=== PATIENT | male | born 1955 | race Caucasian/White ===

== ENCOUNTER 2018-09-28 19:24 | Emergency (ER) | payer BC, OTHER ==
[2018-09-28] MEDS ORDERED: DOXYcycline CAP(*) 100 MG PO ONE (21:07)
--- NOTE | 2018-09-28 21:12 | ED ---
Skin Complaint - HPI Summary HPI Summary: 62-year-old male presents with complaints of erythematous bull's-eye rash to his right lower leg. States he noticed what looked like a bug bite to that same area approximately one week ago but states he did not see any tick. Denies fever, flulike illness, myalgias, joint pain or swelling. - History of Current Complaint Chief Complaint: EDRashSkinAbscess Time Seen by Provider: 09/28/18 21:00 Stated Complaint: TICK ON RT LEG PER PT Hx Obtained From: Patient Pain Intensity: 0 - Allergy/Home Medications Allergies/Adverse Reactions: Allergies Allergy/AdvReac Type Severity Reaction Status Date / Time No Known Allergies Allergy Verified 09/28/18 19:30 PMH/Surg Hx/FS Hx/Imm Hx Previously Healthy: Yes - Denies significant PMH - Surgical History Surgical History: None Infectious Disease History: No Infectious Disease History: Denies: Traveled Outside the in Last 30 Days - Family History Known Family History: Positive: Non-Contributory - Social History Occupation: Employed Full-time Lives: Alone Alcohol Use: None Substance Use Type: Reports: None Smoking Status (MU): Never Smoked Tobacco Review of Systems Negative: Fever, Chills Cardiovascular: Negative Respiratory: Negative Gastrointestinal: Negative Genitourinary: Negative Negative: Arthralgia, Myalgia Positive: Rash - See HPI Neurological: Negative All Other Systems Reviewed And Are Negative: No Physical Exam - Summary Physical Exam Summary: GENERAL APPEARANCE: Well developed, well nourished, alert and cooperative, and appears to be in no acute distress. CARDIAC: Normal S1 and S2. No S3, S4 or murmurs. Rhythm is regular. There is no peripheral edema, cyanosis or pallor. Extremities are warm and well perfused. Capillary refill is less than 2 seconds. Peripheral pulses intact. LUNGS: Clear to auscultation without rales, rhonchi, wheezing or diminished breath sounds. ABDOMEN: Positive bowel sounds. Soft, nondistended, nontender. No guarding or rebound. No masses or hepatosplenomegally. MUSKULOSKELETAL: ROM intact to all extremities. No joint erythema or tenderness. Normal muscular development. Normal gait. EXTREMITIES: 8 cm oval-shaped erythematous rash with central pallor. SKIN: Skin normal color, texture and turgor. Triage Information Reviewed: Yes Vital Signs On Initial Exam: Initial Vitals Temp Pulse Resp BP Pulse Ox 97.4 F 62 16 139/87 98 09/28/18 19:27 09/28/18 19:27 09/28/18 19:27 09/28/18 19:27 09/28/18 19:27 Vital Signs Reviewed: Yes Diagnostics - Vital Signs Vital Signs Temp Pulse Resp BP Pulse Ox 09/28/18 19:27 97.4 F 62 16 139/87 98 - Laboratory Lab Statement: Any lab studies that have been ordered have been reviewed, and results considered in the medical decision making process. Course/Dx - Course Course Of Treatment: 62-year-old male presents with complaints of erythematous bull's-eye rash to his right lower leg. States he noticed what looked like a bug bite to that same area approximately one week ago but states he did not see any tick. Denies fever, flulike illness, myalgias, joint pain or swelling. Afebrile. Vital signs stable. Patient had an 8 cm oval-shaped erythematous rash with central pallor to his right lower leg that is suspicious for erythema migrans. We'll start him on doxycycline 100 mg twice a day 2 weeks. The first dose was given to him in the ER. He is to follow-up with his primary care provider within the next 2 weeks for recheck. Anticipatory guidance and warning symptoms were reviewed with the patient. Verbalizes understanding and agrees with plan of care. - Differential Diagnoses - Skin Complaint Differential Diagnoses: Local Allergic Reaction, Tick Born Illness - Diagnoses Provider Diagnoses: Erythema migrans (Lyme disease) Discharge - Sign-Out/Discharge Documenting (check all that apply): Patient Departure Patient Received Moderate/Deep Sedation with Procedure: No - Discharge Plan Condition: Stable Disposition: HOME Prescriptions: Doxycycline Hyclate 100 mg PO BID #28 tablet Patient Education Materials: Lyme Disease (ED) Referrals: No Primary Care Phys,NOPCP [Primary Care Provider] - Additional Instructions: Your rashes suspicious for Lyme disease. We will start to on an antibiotic to treat you for this. Start doxycycline 100 mg twice a day for 2 weeks. We gave you the first dose in the emergency room. Do not drink milk or eat milk products or use calcium supplements for at least 2 hours before or after taking this medication as the calcium will affect absorption of the antibiotic. This antibiotic will also make him more sensitive to the son therefore you should avoid sun exposure however if you need to be outdoors take precautions including sunscreen, long sleeves, and hat. To try to avoid getting bitten by a tick, you can: * Wear shoes, long-sleeved shirts, and long pants when you go outside. Keep ticks away from your skin by tucking your pants into your socks. * Wear light colors so you can spot any ticks that get on your clothes. * Wear bug spray or cream that contains DEET. (Do not use DEET on babies younger than 2 months.) On your clothes and gear, you can use bug repellents that have a chemical called "permethrin." * Shower within 2 hours of being outdoors if you think you have been in an area where there are ticks. * Put dry clothes briefly (for about 4 minutes) in a dryer after being outdoors. * Check your clothes and body for ticks after being outdoors. Be sure to check your scalp, waist, armpits, groin, and backs of your knees. Check your children , too. Follow-up with your primary care provider within 2 weeks. Return to the emergency room if you develop fever greater than 100.5 F, the redness continues to spread, if severe pain in the leg, increased swelling, or any worsening of symptoms - Billing Disposition and Condition Condition: STABLE Disposition: Home
[2018-09-28 21:35] VITALS: BP 119/79
== END 2018-09-28 21:23 | disposition home or self-care (01) ==
LOC: ED 19:24
DX: A26.0 Cutaneous erysipeloid (principal)
CPT/HCPCS: 99282; A9270-GY